=== PATIENT | female | born 1995 | race Two or more races ===

== ENCOUNTER 2024-02-21 22:47 | Emergency (ER) | payer MEDICAID, SELFPAY ==
[2024-02-21 22:48] VITALS: BMI 43.5
--- NOTE | 2024-02-21 22:56 | PC.NURSE ---
JUSTIN SALGADO CONTACTED AT THIS TIME, WILL SEND AN OFFICER WHEN AVAILABLE.
--- NOTE | 2024-02-21 23:27 | PC.NURSE ---
called pt to triage and no answer
--- NOTE | 2024-02-22 00:08 | PC.NURSE ---
STAFF CALLED PATIENT IN THE LOBBY AND OUTSIDE, NO ANSWER.
--- NOTE | 2024-02-22 00:24 | PC.NURSE ---
CALLED PATIENT IN THE LOBBY AND OUTSIDE, NO ANSWER RECEIVED FROM PATIENT.
== END 2024-02-22 00:25 | disposition left against medical advice (07) ==
LOC: SERX 02-22 00:25
PROVIDERS: Emergency Provider Emergency Medicine
DX: Z53.21 Procedure and treatment not carried out due to patient leaving prior to being seen by health care provider (principal)

== ENCOUNTER 2024-05-18 00:35 | Emergency (ER) | payer MEDICAID, SELFPAY ==
[2024-05-18] MEDS: ALBUTEROL/IPRATROPIUM (Duoneb) RT SOL 3 ML NEBU INH (01:25)
[2024-05-18 01:40] VITALS: PULSE 128; RESP 21; O2SAT 99
[2024-05-18] MEDS: DEXAMETHASONE SOD PHOS INJ 10 MG/ML VIAL IM (01:54)
== END 2024-05-18 02:53 | disposition home or self-care (01) ==
LOC: SERX 06:09
PROVIDERS: Emergency Provider Emergency Medicine
DX: R05.9 Cough, unspecified (principal)
CPT/HCPCS: 94640; 96372; 99283; J1100

== ENCOUNTER 2024-11-01 10:15 | Emergency (ER) | payer MEDICAID, SELFPAY ==
[2024-11-01 10:17] VITALS: PULSE 118; RESP 24; O2SAT 98; BMI 39.7
[2024-11-01 10:21] VITALS: BP 120/89; PULSE 103; RESP 18; TEMP 36.9; O2SAT 98
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
[2024-11-01 12:55] LABS: HCG Qualitative,Urine Negative
--- NOTE | 2024-11-01 13:50 | PC.NURSE ---
PPD AND TCSO AT PATIENT'S BEDSIDE.
[2024-11-01 14:51] VITALS: BP 120/77; PULSE 95; RESP 18; TEMP 36.9; O2SAT 99
[2024-11-01] MEDS: DIPHTH,PERTUSS(ACELL),TET VAC 0.5 ML SYR- ADULT IMi (16:25)
[2024-11-01 16:30] VITALS: BP 121/80; PULSE 91; RESP 18; TEMP 36.8; O2SAT 94
[2024-11-01] MEDS: LIDOCAINE HCL 1% 20 ML VIAL 30 ML INFL (16:32)
== END 2024-11-01 16:46 | disposition home or self-care (01) ==
PROVIDERS: Emergency Provider Emergency Medicine
DX: S01.411A Laceration without foreign body of right cheek and temporomandibular area, initial encounter (principal); Y04.2XXA Assault by strike against or bumped into by another person, initial encounter; Z23 Encounter for immunization; Y04.0XXA Assault by unarmed brawl or fight, initial encounter
CPT/HCPCS: 12014; 70450; 70486; 72125; 81025; 90471; 90715; 99283; J3490

== ENCOUNTER 2025-02-10 15:59 | Emergency (ER) | payer MEDICAID, SELFPAY ==
[2025-02-10 16:02] VITALS: PULSE 112; O2SAT 98; BMI 40.2
[2025-02-10 16:09] VITALS: BP 135/79; PULSE 107; RESP 20; TEMP 36.9; O2SAT 97
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
[2025-02-10 17:11] LABS: Basophils # (Auto) 0.1 Thou/mm3 (0.0-0.2); Basophils % (Auto) 1 % (0-2.5); Eosinophils # (Auto) 0.1 Thou/mm3 (0.0-0.5); Eosinophils % (Auto) 2 % (0-10); Hematocrit 35.7 % (36.0-46.0); Hemoglobin 11.7 g/dL (12.0-16.0); Immature Granulocytes Auto 0.02 Thou/mm3 (0.00-0.00); Lymphocytes # (Auto) 2.4 Thou/mm3 (1.0-4.8); Lymphocytes % (Auto) 35 % (10-50); Mean Corpuscular HGB Conc 32.8 g/dl (31.0-37.0); Mean Corpuscular Hemoglobin 27.5 pg (25.0-35.0); Mean Corpuscular Volume 84 fL (80-100); Monocytes # (Auto) 0.5 Thou/mm3 (0.0-0.8); Monocytes % (Auto) 8 % (0-12); Neutrophils # (Auto) 3.6 Thou/mm3 (1.8-7.7); Neutrophils % (Auto) 54 % (37-80); Nucleated Red Blood Cell # 0.00 Thou/mm3 (0.00-0.00); Nucleated Red Blood Cell % 0 /100 WBC (0); Platelet Count 366 Thou/mm3 (140-440); RDW Standard Deviation 44.3 fL (36.4-46.3); Red Blood Count 4.26 Miln/mm3 (4.00-5.20); White Blood Count 6.7 Thou/mm3 (3.6-11.0)
[2025-02-10 17:26] LABS: HCG,Qualitative Serum Negative
[2025-02-10 17:30] LABS: Alanine Aminotransferase 17 U/L (10-49); Albumin, Serum 4.5 gm/dL (3.5-5.0); Albumin/Globulin Ratio 1.5 (1.2-2.2); Alcohol, Blood Medical 216.2 mg/dL (0-10.0); Alkaline Phosphatase 78 U/L (46-116); Anion Gap 13 (7-16); Aspartate Amino Transferase 26 U/L (0-34); BUN/Creatinine Ratio 9 Ratio (12-20); Bilirubin,Total 0.3 mg/dL (0.3-1.2); Blood Urea Nitrogen 7 mg/dL (9-23); Calcium 9.1 mg/dL (8.3-10.6); Calcium (Corrected) 9.1 mg/dL (8.5-10.1); Carbon Dioxide 20.7 mMol/L (20.0-31.0); Chloride 106 mMol/L (98-107); Creatinine (Component) 0.8 mg/dL (0.6-1.3); Estimated Creatinine Clearance 138.2 mL/min (>60); Globulin 3.0 gm/dL (2.3-3.5); Glucose 92 mg/dL (74-106); Osmolality,Calculated 277 (275-295); Potassium 3.8 mMol/L (3.4-5.1); Sodium 140 mMol/L (136-145); Total Protein 7.5 gm/dL (5.7-8.2); eGFR > 60 See Note
[2025-02-10 17:51] LABS: Amphetamine/Methamp Scrn,U Positive (Negative); Barbiturate Screen,Urine Negative (Negative); Benzodiazepines Screen,Urine Negative (Negative); Benzoylecgonine Screen, Ur Negative (Negative); Fentanyl Screen,Urine Negative (Negative); Opiate Screen,Urine Negative (Negative); THC Screen,Urine Negative (Negative)
== END 2025-02-10 21:54 | disposition left against medical advice (07) ==
LOC: SERX 16:40
PROVIDERS: Emergency Provider Nurse Practitioner Primary Care
DX: Z53.21 Procedure and treatment not carried out due to patient leaving prior to being seen by health care provider (principal)
CPT/HCPCS: 36415; 80053; 80307; 80320; 84703; 85025; 99282; G0480

== ENCOUNTER 2025-02-25 17:41 | Emergency (ER) | payer MEDICAID, SELFPAY ==
[2025-02-25 17:42] VITALS: BMI 40.7
[2025-02-25 17:50] VITALS: BP 138/87; PULSE 98; RESP 18; TEMP 36.9; O2SAT 99
--- NOTE | 2025-02-25 17:53 | EDRME_ITS ---
Rapid Medical Screening Exam RME Arrival date/time: 02/25/25 17:41 29-year-old female with a history of hypertension presents to the emergency room with a chief complaint of left lower extremity swelling warmth and tenderness x 3 days I have greeted and performed a focused initial assessment of this patient. A c omprehensive ED assessment and evaluation of the patient, analysis of all test results, and completion of the medical decision making process will be conducted by additional ED providers. Chief Complaint: Skin/Abscess/Foreign Body Time Seen by Provider: 02/25/25 17:44 Vital signs: Vital Signs Temperature 98.5 F 02/25/25 17:50 Pulse Rate 98 02/25/25 17:50 Respiratory Rate 18 02/25/25 17:50 Blood Pressure 138/87 H 02/25/25 17:50 Pulse Oximetry (%) 99 02/25/25 17:50 Oxygen Delivery Method Room Air 02/25/25 17:50 Vital signs reviewed by provider: Yes Exam: Lower extremity swelling erythema and tenderness. There is warmth and a positive Homans' sign. Patient has clear bilateral lung sounds strong and regular rhythm S1 and S2 noted Clinical Impression: DVT/cellulitis/sepsis
[2025-02-25 18:30] LABS: Collection Type, Urine Clean Catch
[2025-02-25 18:31] LABS: Lactate (Lactic Acid) 2.2 mMol/L (0.4-2.0)
[2025-02-25 18:34] LABS: Basophils # (Auto) 0.1 Thou/mm3 (0.0-0.2); Basophils % (Auto) 0 % (0-2.5); Eosinophils # (Auto) 0.0 Thou/mm3 (0.0-0.5); Eosinophils % (Auto) 0 % (0-10); Hematocrit 35.0 % (36.0-46.0); Hemoglobin 11.3 g/dL (12.0-16.0); Immature Granulocytes Auto 0.07 Thou/mm3 (0.00-0.00); Lymphocytes # (Auto) 1.3 Thou/mm3 (1.0-4.8); Lymphocytes % (Auto) 9 % (10-50); Mean Corpuscular HGB Conc 32.3 g/dl (31.0-37.0); Mean Corpuscular Hemoglobin 27.5 pg (25.0-35.0); Mean Corpuscular Volume 85 fL (80-100); Monocytes # (Auto) 1.0 Thou/mm3 (0.0-0.8); Monocytes % (Auto) 7 % (0-12); Neutrophils # (Auto) 11.7 Thou/mm3 (1.8-7.7); Neutrophils % (Auto) 83 % (37-80); Nucleated Red Blood Cell # 0.00 Thou/mm3 (0.00-0.00); Nucleated Red Blood Cell % 0 /100 WBC (0); Platelet Count 304 Thou/mm3 (140-440); RDW Standard Deviation 45.1 fL (36.4-46.3); Red Blood Count 4.11 Miln/mm3 (4.00-5.20); White Blood Count 14.2 Thou/mm3 (3.6-11.0)
[2025-02-25 18:43] LABS: Bacteria,Urine 4+; Bilirubin,Urine Negative (Negative); Blood,Urine Negative (Negative); Clarity,Urine Turbid (Clear/Hazy); Color,Urine Yellow (Lt Yel-Yel); Glucose, Urine Trace (Negative); Ketones,Urine Trace (Negative); Leukocyte Esterase,Urine Positive (Negative); Nitrite,Urine Positive (Negative); PH,Urine 6.5 (5.0-7.0); Protein,Urine 1+ (Neg - Trace); Specific Gravity,Urine 1.038 (1.001-1.035); Squamous Epithelial Cell,Urine 24 /hpf (0-5); Urobilinogen,Urine 2.0 mg/dL (0.0-1.0); WBC,Urine 84 /hpf (0-5)
[2025-02-25 18:44] LABS: RBC,Urine 11 /hpf (0-3)
[2025-02-25 18:58] LABS: Alanine Aminotransferase 13 U/L (10-49); Albumin, Serum 4.5 gm/dL (3.5-5.0); Albumin/Globulin Ratio 1.7 (1.2-2.2); Alkaline Phosphatase 66 U/L (46-116); Anion Gap 9 (7-16); Aspartate Amino Transferase 15 U/L (0-34); BUN/Creatinine Ratio 15 Ratio (12-20); Bilirubin,Total 0.4 mg/dL (0.3-1.2); Blood Urea Nitrogen 12 mg/dL (9-23); Calcium 9.1 mg/dL (8.3-10.6); Calcium (Corrected) 9.1 mg/dL (8.5-10.1); Carbon Dioxide 24.8 mMol/L (20.0-31.0); Chloride 105 mMol/L (98-107); Creatinine (Component) 0.8 mg/dL (0.6-1.3); Estimated Creatinine Clearance 139.1 mL/min (>60); Globulin 2.6 gm/dL (2.3-3.5); Glucose 81 mg/dL (74-106); Osmolality,Calculated 276 (275-295); Potassium 3.8 mMol/L (3.4-5.1); Procalcitonin 0.43 ng/ml (0.0-0.49); Sodium 139 mMol/L (136-145); Total Protein 7.1 gm/dL (5.7-8.2); eGFR > 60 See Note
[2025-02-25 21:26] LABS: Reflex Lactate? Y
--- NOTE | 2025-02-25 22:30 | PC.NURSE ---
called pt no answer 1616 x1
--- NOTE | 2025-02-25 22:40 | PC.NURSE ---
called 2239 no emersonwer
--- NOTE | 2025-02-25 22:52 | PC.NURSE ---
2250 called pt no answer x3
== END 2025-02-25 22:53 | disposition left against medical advice (07) ==
PROVIDERS: Nurse Practitioner Family; Emergency Provider Family Medicine
DX: M79.89 Other specified soft tissue disorders (principal); I10 Essential (primary) hypertension; Z53.29 Procedure and treatment not carried out because of patient's decision for other reasons
CPT/HCPCS: 36415; 80053; 81001; 83605; 84145; 85025; 87040; 87077; 87086; 87186; 99282

== ENCOUNTER 2025-03-16 04:04 | Emergency (ER) | payer MEDICAID, SELFPAY ==
[2025-03-16 04:06] VITALS: BMI 38.3
[2025-03-16 04:15] VITALS: BP 156/101; BP 157/109; PULSE 109; RESP 18; TEMP 36.7; O2SAT 99
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
== END 2025-03-16 05:05 | disposition home or self-care (01) ==
LOC: SERX 05:23
PROVIDERS: Emergency Provider Emergency Medicine; PCP Family Medicine
DX: L97.929 Non-pressure chronic ulcer of unspecified part of left lower leg with unspecified severity (principal)
CPT/HCPCS: 99282

== ENCOUNTER 2025-03-20 13:14 | Emergency (ER) | payer MEDICAID, SELFPAY ==
[2025-03-20 13:18] VITALS: PULSE 90; O2SAT 98; BMI 38.3
[2025-03-20] MEDS: DIPHTH,PERTUSS(ACELL),TET VAC 0.5 ML SYR- ADULT IMi (13:33)
[2025-03-20 13:52] VITALS: BP 145/95; PULSE 79; RESP 18; O2SAT 100
--- NOTE | 2025-03-20 14:10 | PD.EDADULT ---
ED General RME/HPI General Chief complaint: Extremity Injury, Lower Stated complaint: DOG BITE Time Seen by Provider: 03/20/25 13:16 Arrival date/time: 03/20/25 13:14 CC: Right lower leg pain HPI patient was bit by dog approximately 20 minutes prior to arrival. Patient denies any other symptoms. Patient states he is allergic to an antibiotic she denies fever chills chest pain shortness of breath difficulty breathing was just discharged from [facility] for an ulcer on her right leg above the dog bite. Related Data Previous Rx's ?Medication ?Instructions ?Recorded labetalol 100 mg tablet 200 mg (2 x 100 mg) PO BID 30 days 07/26/21 #120 tabs mupirocin 2 % ointment topical kit 1 applic topical BID #1 ea 03/16/25 amoxicillin 875 mg-potassium 1 tab PO BID #14 tabs 03/20/25 clavulanate 125 mg tablet Allergies Allergy/AdvReac Type Severity Reaction Status Date / Time ANTIBIOTIC Allergy RASH Uncoded 03/16/25 04:06 Review of Systems Review of Systems Narrative Review of Systems: GEN: No fever, no chills, no weight loss EYES: No discharge, no visual changes, no pain HEENT: No ear pain, no congestion, no sore throat PULM: No shortness of breath, no cough, no congestion CV: No chest pain, no dyspnea on exertion, no palpitations GI: No nausea, no vomiting, no diarrhea, no pain, no constipation : No frequency, no urgency, no dysuria MUSC/SKEL: No joint pain, no back pain SKIN: Bite, laceration, no rash PSYCH: No hallucinations, no depression HEME/LYMPH: No easy bleeding or bruising tendencies NEURO: No weakness, no headache ED Exam Narrative Physical exam: [General: Obese not in mild discomfort but not in any acute distress Head normocephalic HEENT: Within acceptable limits Neck is supple nontender Chest equal chest rise nontender to palpation Respiratory: Clear to auscultation no wheezes crackles or rubs CV: Rate rhythm is regular no murmurs rubs or clicks Abdomen is distended secondary to body habitus soft nontender no masses positive bowel sounds all 4 quadrants Back: No CVA tenderness no spinous process tenderness from cervical spine thoracic and lumbar spine Skin: 10 cm horizontal laceration with a distal 2 cm horizontal laceration parallel to the 10 cm lack. Minor abrasions above the Achilles tendon. Chronic but improving ulcer in the mid lower leg clean dry and intact. Otherwise skin is intact no petechiae rash induration ulceration or crepitus Extremities: Moving all extremity against resistance cap refill less than 2 seconds neurosensory intact Neuro: Awake alert oriented x3 Glascow coma 15 no focal deficits] Course Quality Measures none Orders Category Date Time Status Set Up Suture Tray STAT Care 03/20/25 13:20 Active Lidocaine 2% Pf 5 ml [Xylocaine 2% Pf 5 ml] Med 03/20/25 13:45 Discontinued 20 ml INFL X1 ONE TET,DIP/PERT AC (Adult)-Tdap [Boostrix Adult (Tdap) Med 03/20/25 13:20 Discontinued Vacc] 0.5 ml IMI .ONCE ONE oxyCODONE/APAP 5/325 [Percocet 5/325] Med 03/20/25 13:44 Discontinued 1 tab PO X1 ONE Vital Signs Vital signs: Vital Signs Pulse Rate 79 03/20/25 13:52 Respiratory Rate 18 03/20/25 13:52 Blood Pressure 145/95 H 03/20/25 13:52 Pulse Oximetry (%) 100 03/20/25 13:52 Oxygen Delivery Method Room Air 03/20/25 13:52 PROCEDURES: Procedure Comment Site is too big to leave open as the patient is vulnerable to infection in the lower extremity. Procedure laceration repair: Anesthesia 1% lidocaine 6 mL injected in the local site. Site was gently cleaned. Site was probed no foreign body was found. Site was approximated with 3 interrupted sutures of 3-0 Ethilon with loose approximation. Bulky dressing applied patient tolerated the procedure well. Discharge Plan Plan Patient Disposition: HOME (Self Care) Patient condition on transfer: Stable Prescriptions/Referrals Prescriptions/Med Rec: New amoxicillin-pot clavulanate 875-125 mg tablet 1 tab PO BID Qty: 14 0RF No Action labetalol 100 mg Tablet 200 mg PO BID 30 Days Qty: 120 2RF mupirocin 2 % ointment kit 1 applic topical BID Qty: 1 0RF Referrals: Cisco Hendrickson MD [Physician, Family Practice] - In 1 week Problem List Clinical Impression: Dog bite of calf Patient/Caregiver Discharge Instructions Other Activity Instructions:: Keep this dressing on for the next 3 days, then change dressing once a day in the next 3 days do not get the site wet. Once you are finished with the antibiotics you are taking for the ulcer of your legs start the antibiotics provided. Return in 10 days for suture removal. If there are any signs of infection such as redness or pus from the site return immediately to the emergency room for reevaluation. Education Materials: ED Animal Bite (General) Print Language: Qatari Stand Alone Forms: Katie Award Info., Patient Portal Info Letter, Work/School Release PA/HVAC INSTALLER Supervising Physician PA/HVAC INSTALLER Supervising Physician: Rey Werner ENP MDM Medication Administration(s) Medication Administration History Discontinued Medications Diphtheria/Tetanus/Acell Pertussis (Diphth,Pertuss(Acell),Tet Vac 0.5 Ml Syr- Adult) 0.5 ml IMi .ONCE ONE Stop: 03/20/25 13:21 Last Admin: 03/20/25 13:33 Dose: 0.5 ml Documented By: BD Lidocaine HCl (Lidocaine Inj Pf 2% 5 Ml Vial) 20 ml INFL X1 ONE Stop: 03/20/25 13:46 Oxycodone/Acetaminophen (Oxycodone/Apap 5/325 Tablet) 1 tab PO X1 ONE Stop: 03/20/25 13:45 Last Admin: 03/20/25 13:48 Dose: 1 tab Documented By: VL
[2025-03-20 14:28] VITALS: BP 162/98; PULSE 98; RESP 18; TEMP 37.2; O2SAT 98
== END 2025-03-20 14:52 | disposition home or self-care (01) ==
LOC: SERX 14:38
PROVIDERS: Emergency Provider Emergency Medicine
DX: S81.812A Laceration without foreign body, left lower leg, initial encounter (principal); W54.0XXA Bitten by dog, initial encounter; Z23 Encounter for immunization
CPT/HCPCS: 12004; 90471; 90715; 99282; A9270